=== PATIENT | female | born 1965 | race African-American/Black ===

== ENCOUNTER 2018-02-12 19:14 | Emergency (ER) | payer SELFPAY ==
[~2018-02-12] VITALS: Ht 180.3 cm; Wt 99.8 kg
[2018-02-12] MEDS ORDERED: ONDANSETRON HCL 4MG/2ML INJ IV STA (20:01)
[2018-02-12] MEDS ORDERED: SODIUM CHLORIDE 0.9% 1,000 ML IV ONE (20:01)
[2018-02-12] MEDS ORDERED: FENTANYL CITRATE/PF 50MCG/ML 2ML VIAL IV ONE (20:15)
[2018-02-12 21:16] LABS: CHLORIDE 106 mEq/L (98-107)
[2018-02-12 21:20] LABS: BASOPHILS % 0.7 % (0.0-2.0); EOSINOPHILS % 2.5 % (0.0-5.0); HEMATOCRIT. 39.2 % (36.0-48.0); LYMPHOCYTES % 36.9 % (20.0-50.0); MEAN CORPUSCULAR HEMOGLOBIN 29.6 pg (28.0-32.0); MEAN CORPUSCULAR VOLUME 89.1 fL (81.0-99.0); MEAN PLATELET VOLUME 8.9 fl (7.4-10.4); MONOCYTES % 4.5 % (2.0-8.0); NEUTROPHILS % 55.4 % (40.0-76.0); PARTIAL THROMBOPLASTIN TIME 28.7 sec (23.4-31.0); PLATELET 267 x1000/uL (130-400); PROTHROMBIN TIME 10.3 sec (9.1-11.1); RED CELL DISTRIBUTION WIDTH 13.7 % (11.6-14.6)
[2018-02-12] MEDS ORDERED: IOHEXOL-300 100 ML BOTTLE ONE (23:22)
[2018-02-12 23:40] VITALS: BP 119/54
== END 2018-02-12 23:48 | disposition home or self-care (01) ==
LOC: ER 19:14
DX: S09.8XXA Other specified injuries of head, initial encounter (principal); S16.1XXA Strain of muscle, fascia and tendon at neck level, initial encounter; E11.9 Type 2 diabetes mellitus without complications; M54.5 Low back pain; E78.00 Pure hypercholesterolemia, unspecified; I10 Essential (primary) hypertension; F17.200 Nicotine dependence, unspecified, uncomplicated; R42 Dizziness and giddiness; V49.49XA Driver injured in collision with other motor vehicles in traffic accident, initial encounter; Y93.89 Activity, other specified; Y92.89 Other specified places as the place of occurrence of the external cause; Y99.8 Other external cause status
CPT/HCPCS: 36415; 70450; 71045; 71260; 72125; 74177; 80053; 83690; 83880; 84484; 85025; 85610; 85730; 93005; 96361; 96374; 96375; 99284; J2405; J3010; J7030; Q9967

== ENCOUNTER 2022-03-19 14:09 | Emergency (ER) | payer MEDICAID ==
[~2022-03-19] VITALS: Ht 180.3 cm; Wt 85.0 kg
[2022-03-19 15:40] VITALS: BP 125/62
[2022-03-19] MEDS ORDERED: MECLIZINE 25MG TABLET PO ONE (16:15)
[2022-03-19] MEDS ORDERED: MECL-115 PO (16:35)
== END 2022-03-19 17:00 | disposition home or self-care (01) ==
LOC: ER 14:09
DX: R42 Dizziness and giddiness (principal); I10 Essential (primary) hypertension; E78.00 Pure hypercholesterolemia, unspecified; E11.9 Type 2 diabetes mellitus without complications; Z98.890 Other specified postprocedural states
CPT/HCPCS: 82962; 93005; 99283; J8597

== ENCOUNTER 2022-03-27 15:58 | Emergency (ER) | payer MEDICAID ==
[~2022-03-27] VITALS: Ht 162.6 cm; Wt 80.0 kg
[~2022-03-27 15:58] MED LIST: MECL-115 PO
[2022-03-27 16:02] VITALS: BP 121/45
[2022-03-27] MEDS ORDERED: ONDANSETRON 4MG ODT PO STA (16:42)
[2022-03-27] MEDS ORDERED: MAGNESIUM/ALUMINUM HYDROXIDE/SIMETHICONE 30ML UDC PO STA (16:42)
[2022-03-27] MEDS ORDERED: SODIUM CHLORIDE 0.9% 1,000 ML IV ONE (16:45)
[2022-03-27 17:37] LABS: BASOPHILS % 0.4 % (0.0-2.0); HEMATOCRIT. 41.6 % (36.0-48.0); HEMOGLOBIN. 13.8 g/dL (12.0-16.0); LYMPHOCYTES % 11.3 % (20.0-50.0); MEAN CORPUSCULAR HEMOGLOBIN 30.4 pg (28.0-32.0); MEAN CORPUSCULAR VOLUME 91.8 fL (81.0-99.0); MONOCYTES % 1.9 % (2.0-8.0); NEUTROPHILS % 86.4 % (40.0-76.0); PLATELET 217 x1000/uL (130-400); RED BLOOD CELL COUNT 4.53 mill/uL (4.2-5.4); RED CELL DISTRIBUTION WIDTH 13.6 % (11.6-14.6)
[2022-03-27 17:45] LABS: CHLORIDE 110 mEq/L (98-107)
[2022-03-27] MEDS ORDERED: ONDANSETRON 4MG ODT PO NR (19:30)
[2022-03-27] MEDS ORDERED: MAGNESIUM/ALUMINUM HYDROXIDE/SIMETHICONE 30ML UDC PO NR (19:30)
[2022-03-27] MEDS ORDERED: DICY10CA88 MT (20:22)
[2022-03-27] MEDS ORDERED: ONDA4TAB50 MT (20:22)
[2022-03-27] MEDS ORDERED: ACET-2708 MT (20:22)
[2022-03-27] MEDS ORDERED: ACETAMINOPHEN 325MG TABLET PO NR (20:30)
[2022-03-27] MEDS ORDERED: DICYCLOMINE HCL 10MG CAPSULE PO NR (21:00)
== END 2022-03-27 20:40 | disposition home or self-care (01) ==
LOC: ER 15:58
DX: A08.4 Viral intestinal infection, unspecified (principal); E11.9 Type 2 diabetes mellitus without complications; I10 Essential (primary) hypertension; E78.00 Pure hypercholesterolemia, unspecified; D72.829 Elevated white blood cell count, unspecified; Z98.890 Other specified postprocedural states
CPT/HCPCS: 36415; 74018; 80053; 83690; 85025; 96360; 99284; J7030; Q0162; Z7610